=== PATIENT | female | born 1975 | race Hispanic/Latino ===

== ENCOUNTER 2019-02-13 05:21 | Emergency (ER) | payer OTHER | END 2019-02-13 06:10 | disposition home or self-care (01) | LOC: EDH 05:21 → EDBD 05:21 → EDH 06:10 | DX: S50.812A Abrasion of left forearm, initial encounter (principal); L08.9 Local infection of the skin and subcutaneous tissue, unspecified; R45.4 Irritability and anger; W45.8XXA Other foreign body or object entering through skin, initial encounter; Y93.89 Activity, other specified; Y92.89 Other specified places as the place of occurrence of the external cause; Y99.8 Other external cause status ==

== ENCOUNTER 2023-04-06 04:57 | Emergency (ER) | payer OTHER ==
[~2023-04-06] VITALS: Ht 160 cm; Wt 68.0 kg
[2023-04-06 05:39] LABS: BASOPHILS % (AUTO) 0.7 % (0.0-5.0); EOSINOPHILS % (AUTO) 1.7 % (0.0-8.0); HEMATOCRIT 27.8 % (36-48); MEAN CORPUSCULAR HEMOGLOBIN 22.9 pg (27.0-33.0); MEAN CORPUSCULAR HGB CONC 29.9 g/dL (32.0-36.0); MEAN CORPUSCULAR VOLUME 76.8 fL (79-99); NEUTROPHILS % (AUTO) 78.4 % (40.0-77.0); PLATELET COUNT (AUTO) 297 K/uL (130-400); RED BLOOD CELL COUNT(AUTO) 3.62 MIL/uL (4.00-5.50); RED CELL DISTRIBUTION WIDTH 18.9 % (11.0-15.5); WHITE BLOOD COUNT (AUTO) 4.1 K/uL (4.8-10.8)
[2023-04-06 05:48] LABS: AMPHET/METH SCREEN,URINE NEGATIVE (NEGATIVE); BARBITURATE SCREEN, URINE NEGATIVE (NEGATIVE); BENZODIAZEPINES SCREEN,URINE NEGATIVE (NEGATIVE); CANNABINOID SCREEN,URINE NEGATIVE (NEGATIVE); COCAINE SCREEN,URINE POSITIVE (NEGATIVE); OPIATE SCREEN,URINE NEGATIVE (NEGATIVE); PHENCYCLIDINE SCREEN,URINE NEGATIVE (NEGATIVE)
[2023-04-06 05:52] LABS: ALBUMIN 3.5 g/dL (3.5-5.0); CREATININE 0.8 mg/dL (0.5-1.5); TOTAL PROTEIN, SERUM 7.2 g/dL (6.0-8.3)
[2023-04-06 05:55] LABS: POTASSIUM 2.8 mmol/L (3.5-5.1)
[2023-04-06] MEDS ORDERED: LORAZEPAM 2 MG/ML 1 ML VIAL ONE (05:59)
[2023-04-06] MEDS ORDERED: LACTATED RINGERS 1000ML 1,000 ML IV ONE (05:59)
[2023-04-06] MEDS ORDERED: LORAZEPAM 2 MG/ML 1 ML VIAL IVP ONE (06:00)
[2023-04-06] MEDS ORDERED: POTASSIUM BICARB/CIT AC 25 MEQ TABLET.EFF PO ONE (06:00)
[2023-04-06] MEDS ORDERED: LACTATED RINGERS 1000ML IV SCH (06:00)
[2023-04-06 06:39] VITALS: BP 111/68
== END 2023-04-06 06:58 | disposition home or self-care (01) ==
LOC: EDH 04:57
DX: E87.6 Hypokalemia (principal); E83.51 Hypocalcemia; D64.9 Anemia, unspecified; F14.10 Cocaine abuse, uncomplicated
CPT/HCPCS: 99284; 96374; 96361; 83735; 80053; 80305; 85025; 82948; 36415; 93005; J7120; J2060; 96365